=== PATIENT | male | born 1995 | race Caucasian/White ===

== ENCOUNTER 2016-10-24 18:35 | Emergency (ER) | payer SELFPAY ==
[2016-10-24 18:42] VITALS: BP 162/83; PULSE 81; TEMP 99.1; BMI 31.3
--- NOTE | 2016-10-24 20:18 | PDOC ---
History of Present Illness - General Chief Complaint: Laceration Stated Complaint: LACERATION Time Seen by Provider: 10/24/16 19:34 History Source: Patient Exam Limitations: Language Barrier - History of Present Illness Initial Comments: 10/24/16 20:13 friend translating; CC pt fixing car with knife; cut left hand Timing/Duration: reports: just prior to arrival Severity: Yes: mild Respiratory Risk Factors: denies: no cause identified Past History - Past Medical History Allergies/Adverse Reactions: Allergies Allergy/AdvReac Type Severity Reaction Status Date / Time Penicillins Allergy Intermediate Verified 10/24/16 18:41 Home Medications: Ambulatory Orders NK [No Known Home Medication] 10/24/16 Other medical history: NONE - Immunization History Immunization Up to Date: Yes - Psycho/Social/Smoking Cessation Hx Anxiety: No Suicidal Ideation: No Smoking Status: No Smoking History: Never smoked Number of Cigarettes Smoked Daily: 0 Hx Alcohol Use: No Drug/Substance Use Hx: No Substance Use Type: None Review of Systems - Review of Systems Constitutional: No: Symptoms Reported Respiratory: No: Symptoms reported Integumentary: Yes: Other (laceration hand) Neurological: No: Numbness, Tingling, Weakness *Physical Exam - Vital Signs Last Vital Signs Temp Pulse Resp BP Pulse Ox 99.1 F 81 20 162/83 97 10/24/16 18:38 10/24/16 18:38 10/24/16 18:38 10/24/16 18:38 10/24/16 18:38 - Physical Exam General Appearance: Yes: Appropriately Dressed, Apparent Distress Respiratory/Chest: positive: Lungs Clear Integumentary: positive: Other (6 cm laceration to wbbing left index/ thumb at base; 3 cm laceration left lateral tip finger) Neurologic: positive: Motor Strength 5/5, Other (FROM thumb/ index with nl sensory). negative: Sensory Deficit Procedures - Laceration/Wound Repair Left Lateral Hand Wound Length: 7.6 to 12.5 cm Wound's Depth, Shape: superficial, linear, irregular Anesthesia: 1% Lidocaine Amount of Anesthetic (ccs): 10 Wound Debrided: minimal Wound Repaired With: Sutures Suture Size/Type: 5:0, nylon Number of Sutures: 12 Medical Decision Making - Medical Decision Making 10/24/16 20:16 will have pt reeval by hand this week with WC in ED 2-3 days; TD UPTD will start abx x4 days *DC/Admit/Observation/Transfer Diagnosis at time of Disposition: Laceration of hand Qualifiers: Encounter type: initial encounter Foreign body presence: without foreign body Laterality: left Qualified Code(s): S61.412A - Laceration without foreign body of left hand, initial encounter - Discharge Dispostion Disposition: HOME Condition at time of disposition: Stable Admit: No - Referrals Referrals: Efrain Hamilton MD [Staff Physician] - - Patient Instructions Additional Instructions: please call and see Dr Hamilton this week for reevalaution; wound check in ED in 2 -3 days; keep dry until then - Post Discharge Activity Work/School Note: Back to Work
== END 2016-10-24 20:44 | disposition home or self-care (01) ==
LOC: JERFT 18:35
PROC: 0HQGXZZ Repair Left Hand Skin, External Approach (ICD-10-PCS; principal; 2016-10-24)
DX: S61.412A Laceration without foreign body of left hand, initial encounter (principal); W26.0XXA Contact with knife, initial encounter; Y93.89 Activity, other specified; Y92.89 Other specified places as the place of occurrence of the external cause; Y99.8 Other external cause status
CPT/HCPCS: 99281-25

== ENCOUNTER 2022-11-21 12:26 | Emergency (ER) | payer OTHER ==
[2022-11-21 12:57] VITALS: BP 129/52; PULSE 61; RESP 18; TEMP 98.2; BMI 35.5
[2022-11-21] MEDS ORDERED: LIDOCAINE 5% TOPICAL PATCH TP ONE (13:24)
[2022-11-21] MEDS ORDERED: CYCLOBENZAPRINE HCL 10 MG TABLET (FP) PO ONE (13:24)
[2022-11-21] MEDS ORDERED: KETOROLAC TROMETHAMINE 30 MG/1 ML VIAL IM ONE (13:24)
[2022-11-21] MEDS ORDERED: LIDOCAINE 4% PATCH TP ONE (13:29)
[2022-11-21] MEDS ORDERED: KETOROLAC TROMETHAMINE 30 MG/1 ML VIAL ONE (13:29)
[2022-11-21] MEDS ORDERED: CYCLOBENZAPRINE HCL 10 MG TABLET (FP) ONE (13:29)
[2022-11-21] MEDS ORDERED: LIDOCAINE PATCH REMOVAL MC SCH (22:00)
== END 2022-11-21 14:32 | disposition home or self-care (01) ==
LOC: JER 12:26 → JERFT 12:26
PROC: 3E0233Z Introduction of Anti-inflammatory into Muscle, Percutaneous Approach (ICD-10-PCS; principal; 2022-11-21)
DX: M54.42 Lumbago with sciatica, left side (principal)
CPT/HCPCS: 72100-TC-FY; 99284-25